=== PATIENT | male | born 1975 | race Caucasian/White ===

== ENCOUNTER → 2017-06-12 | Outpatient (CLI) | payer OTHER | END | disposition home or self-care (01) | LOC: NUCLEAR 13:34 | DX: M25.50 Pain in unspecified joint (principal) | CPT/HCPCS: 78306; A9503 ==

== ENCOUNTER 2017-07-30 11:08 | Emergency (ER) | payer OTHER ==
[~2017-07-30] VITALS: Ht 180.3 cm; Wt 95.3 kg
[2017-07-30] MEDS ORDERED: CLEOCIN HCL300 MG PO (16:15)
[2017-07-30] MEDS ORDERED: MEDROLPACK PO (16:15)
== END 2017-07-30 16:28 | disposition home or self-care (01) ==
LOC: ER 11:08
DX: S00.83XA Contusion of other part of head, initial encounter (principal); W18.09XA Striking against other object with subsequent fall, initial encounter; Y93.89 Activity, other specified; Y92.69 Other specified industrial and construction area as the place of occurrence of the external cause; Y99.8 Other external cause status

== ENCOUNTER 2020-01-07 08:40 | Outpatient (CLI) | payer OTHER ==
[~2020-01-07 08:40] MED LIST: CLEOCIN HCL300 MG PO; MEDROLPACK PO
== END 2020-01-07 08:53 | disposition home or self-care (01) ==
LOC: NUCLEAR 08:40
PROVIDERS: ATTEND Internal Medicine Rheumatology
DX: M25.50 Pain in unspecified joint (principal)
CPT/HCPCS: 78315; A9503